=== PATIENT | male | born 1940 | race Hispanic/Latino ===

== ENCOUNTER 2016-11-10 12:41 | Emergency (ER) | payer MEDICARE, MEDICAID ==
[~2016-11-10] VITALS: Ht 177.8 cm; Wt 95.2 kg
[2016-11-10] MEDS ORDERED: FLOMAX0.4 MG PO (13:22)
== END 2016-11-10 15:27 | disposition home or self-care (01) ==
LOC: ED 12:41
DX: K62.89 Other specified diseases of anus and rectum (principal); G89.29 Other chronic pain; R30.0 Dysuria
CPT/HCPCS: 80053; 81001; 85025; 99283